=== PATIENT | male | born 1945 | race African-American/Black ===

== ENCOUNTER 2016-03-18 08:27 | Emergency (ER) | payer MEDICARE | END 2016-03-18 13:47 | disposition home or self-care (01) | LOC: ER 08:27 | DX: R06.00 Dyspnea, unspecified (principal) | CPT/HCPCS: 36415; 71010; 80053; 82553; 82947; 84484; 85025; 93005 ==

== ENCOUNTER 2016-03-24 09:17 | Emergency (ER) | payer MEDICARE | END 2016-03-24 11:38 | disposition home or self-care (01) | LOC: ER 09:17 | DX: J40 Bronchitis, not specified as acute or chronic (principal); F17.210 Nicotine dependence, cigarettes, uncomplicated | CPT/HCPCS: 71020; 87804; 87880 ==